=== PATIENT | male | born 1930 | race Caucasian/White ===

== ENCOUNTER → 2018-08-04 | Outpatient (CLI) | payer MEDICARE, OTHER | LOC: M.MRI 07:07 | DX: S83.242A Other tear of medial meniscus, current injury, left knee, initial encounter (principal); M17.12 Unilateral primary osteoarthritis, left knee; X58.XXXA Exposure to other specified factors, initial encounter; Y93.89 Activity, other specified; Y92.89 Other specified places as the place of occurrence of the external cause; Y99.8 Other external cause status ==

== ENCOUNTER 2018-09-08 06:51 | Inpatient (IN) | payer MEDICARE, OTHER ==
[2018-08-20 09:06] LABS: URINE BILIRUBIN NEGATIVE (Negative); URINE BLOOD 3+ (Negative); URINE CLARITY CLEAR; URINE COLOR YELLOW; URINE GLUCOSE-RANDOM NEGATIVE (Negative); URINE KETONES NEGATIVE (Negative); URINE LEUKOCYTES-REFLEX NEGATIVE (Negative); URINE NITRITE-REFLEX NEGATIVE (Negative); URINE PROTEIN NEGATIVE (Negative); URINE UROBILINOGEN 0.2 E.U./dl (0.2-1.0)
[2018-08-20 09:11] LABS: HEMATOCRIT 48.2 % (42.0-52.0); HEMOGLOBIN 16.2 gm/dL (14.0-18.0); MCH 31.7 pg (26.0-34.0); MCHC 33.6 g/dL (28.0-37.0); MCV 94.3 fL (80.0-100.0); MPV 8.9 fl. (7.2-11.1); RBC 5.11 mil/uL (4.50-6.00); RDW-CV 14.2 % (10.5-14.5); WBC 12.9 thou/uL (4.0-11.0)
[2018-08-20 09:19] LABS: PROTIME 10.7 Seconds (9.20-11.50)
[2018-08-20 09:24] LABS: ALBUMIN 3.8 g/dL (3.4-5.0); CALCIUM 9.3 mg/dL (8.5-10.1); CREATININE 1.4 mg/dL (0.6-1.3); TOTAL BILIRUBIN 0.9 mg/dL (<0.1-1.0); TOTAL PROTEIN 7.8 g/dL (6.4-8.2)
[2018-08-20 09:40] LABS: SQUAMOUS 0-3 Few /LPF (0-3)
[2018-08-20 09:41] LABS: CASTS None Seen /LPF (None Seen); CRYSTALS None Seen /LPF (None Seen); MUCUS 0-3 Light strn/LPF (None Seen); URINE WBC-REFLEX 0-5 Rare /HPF (0-5)
[2018-08-20 09:43] LABS: BACTERIA-REFLEX 1-9 Few /HPF (None Seen)
--- NOTE | 2018-08-20 14:04 | EKG ---
[place] [address] ELECTROCARDIOGRAM REPORT Name: MADISON GRIGSBY Room: PRE IN [facility]#: [id number] Admission: Attend Phys: Elizabeth Sawant Discharge: Date of : 32 Report #: [id number] THIS REPORT FOR: //name// [facility] Test Date: 2018-08-20 Test Time: 09:30:08 Pat Name: MADISON GRIGSBY Department: Room: Gender: M Band Booker: : 1930 Requested By: Dominic Patrick Order Number: [id number] Vish MD: Shayne Carrasco Measurements Intervals [place] Rate: 48 P: 76 AK: 219 QRS: -61 QRSD: 128 T: 100 QT: 422 QTc: 377 Interpretive Statements Sinus bradycardia Left bundle branch block No previous ECG available for comparison Electronically Signed On 08-20-2018 14:04:31 CDT by Shayne Carrasco [email or web address] <ELECTRONICALLY SIGNED> By: Shayne Carrasco MD, [facility] 08/20/18 1404 0930 0930 Shayne Carrasco MD, FACC /EPI
[~2018-09-08] VITALS: Ht 180.3 cm; Wt 96.6 kg
[~2018-09-08 06:51] MED LIST: ASMANEX220 MC2 INH; ASPIRIN EC81 M1 PO; COLACE100 MG PO; FLOMAX0.4 MG PO; MIRALAX17 GM PO; OXYCODONE HCL 55 MG PO; STRIVERDI RESPIM4 GM INH; VENTOLIN HFA 1818 GM INH; XARELTO10 MG PO
[2018-09-08 07:49] VITALS: BP 181/60
[2018-09-08 11:50] VITALS: BP 137/53
--- NOTE | 2018-09-08 16:52 | NUR ---
PATIENT ARRIVED TO UNIT AT 1145. ALERT AND ORIENTED X4. ASSESSMENT COMPLETED AND CHARTED. VSS ON 3 LITERS 02. NO COMPLAINTS OF PAIN, NAUSEA OR SOA. FLUIDS STARTED AND ANTIBIOTIC INFUSED ORDERED. STARTED PAIN MEDS BEFORE CPM USE AND THERAPY. TITRATED OXYGEN DOWN TO 1 LITER, PATIENT VERY EAGER TO GET OXYGEN OFF TODAY, VITALS STABLE ON 1 LITER AT THIS TIME. FALL PRECAUTIONS IN PLACE. CALL LIGHT IN REACH AND USES APPROPRIATELY. HOURLY ROUNDS COMPLETED. WILL CONTINUE TO MONITOR.
[2018-09-08 17:04] VITALS: BP 144/50
[2018-09-08 19:30] VITALS: BP 105/53
[2018-09-09] VITALS: BP 131/53
[2018-09-09 04:00] VITALS: BP 153/49
--- NOTE | 2018-09-09 05:06 | NUR ---
PT SLEPT MOST OF SHIFT. ASSESSMENT DOCUMENTED. MEDS GIVEN PER E-APR. PT REFUSED PAIN MEDS FOR NOW, STATING THAT HE HAS NO PAIN, PT EDUCATED. CPM WORN THIS SHIFT. PT UP TO BSC. IV PATENT, FLUIDS INFUSING. WILL CONTINUE WITH PLAN OF CARE.
[2018-09-09 05:19] LABS: HEMATOCRIT 39.2 % (42.0-52.0)
[2018-09-09 07:30] VITALS: BP 167/56
--- NOTE | 2018-09-09 12:00 | NUR ---
MET WITH PT.AND . SHE WILL BE WITH HIM 16/09 AT HOME UPON DISCHARGE. HE HAS A FWW IN ROOM FROM HOME. HE SAID HE WAS NORMALLY INDEPENDENT AT HOME, STILL DRIVES, ETC. ONLY THING HE CAN'T DO,PER HIS ,IS PUT ON HIS SOCKS. SHE DOES THAT FOR HIM. HE WOULD LIKE TO START OUT WITH HOME HEALTH WHEN HE IS DISCHARGED. LIVES IN [place], [place]. TOLD THEM I WOULD LOOK BUT I FEEL [facility]IS[facility]ING [facility] ONLY [facility] THAT GOES OUT THAT FAR. THEY WERE AGREEABLE. PT.IS ALSO ON CHRONIC XARELTO. HE SAID HE HAS HIS MONTHLY PRESCRIPTION OF 10MG/DAILY AT HOME. HE IS UNSURE IF HE WILL DISCHARGE TODAY OR TOMORROW. CM WILL FOLLOW. FAXED REFERRAL TO [phone] AND WILL NOTIFY OF DISCHARGE [phone].
--- NOTE | 2018-09-09 15:25 | OP ---
[facility] [address] [place] [address] OPERATIVE REPORT Name: MADISON GRIGSBY Room: [address] IN .R.#: [id number] Admission: 09/08/18 Attend Phys: Elizabeth Sawant Discharge: Date of : 32 Report #: [id number] THIS REPORT FOR: //name// CC: Hansel Pressley DATE OF SERVICE: 09/08/2018 PREOPERATIVE DIAGNOSIS: Left knee osteoarthritis. POSTOPERATIVE DIAGNOSIS: Left knee osteoarthritis. PROCEDURE: Left total knee arthroplasty. ANESTHESIA: General endotracheal. ESTIMATED BLOOD LOSS: 50 mL. ANTIBIOTICS: Ancef preoperatively. DRAINS: Medium Hemovac. COMPLICATIONS: None. Condition of the patient is stable to recovery room. IMPLANTS: Listed in operative record and progress note. BRIEF HISTORY: The patient was seen in the preoperative area. Preoperative H and P was performed. Site was marked, questions were answered. Risks and benefits were discussed with the patient in detail about surgery. The patient wished to proceed assuming all risks. DESCRIPTION OF PROCEDURE: The patient was taken to the operative suite and placed supine on the operative table, given appropriate anesthesia. A well-padded tourniquet was applied to the upper thigh, which was inflated to 300 mmHg after gravity exsanguination. The operative knee was sterilely prepped and draped. Surgery began by a midline incision, which was carried down to the subcutaneous tissues. A medial parapatellar arthrotomy was performed and carried down to the bone. The patella was then everted and excess soft tissue was removed from around the femur. Femoral cutting block was then applied, checked with a drop sandra for rotational alignment, pinned in appropriate position and appropriate cuts were made. A 4-in-1 cutting block was then applied, checked for rotational alignment, pinned in appropriate position and appropriate cuts were made. The tibia was exposed. Excess meniscus was removed. Retractor was placed on collateral ligaments. The tibial cutting block was then applied, pinned in appropriate position, checked with drop [place] [address] OPERATIVE REPORT Name: MADISON GRIGSBY Room: [address] IN ..#: [id number] Admission: 09/08/18 Attend Phys: Elizabeth Sawant Discharge: Date of : 32 Report #: [id number] and slope and appropriate cut was made. The tibial bone was removed. The tibial base plate was then applied and checked for rotational alignment with the drop sandra and pinned in appropriate position. The femur was then applied and box cut was reamed. This was then trialed with appropriate spacer, which showed excellent fit and fill and excellent stability of the knee throughout all range of motion. The patella was then reamed in appropriate fashion and sized to appropriate size. Three peg holes were drilled and it was then trialed and showed excellent flexion, extension, excellent tracking of its groove. These trials were removed. The tibia was punched in appropriate fashion. Bone ends were cleansed with Pulsavac irrigation and the cement was mixed and applied to final implants. These were then malleted into position and held the knee in extension and compressed to allow cement to cure. After it cured, excess cement was removed using a [place] and osteotome. Wound was then copiously irrigated and the final spacer was then malleted into position. The tourniquet was deflated. Hemostasis was obtained with electrocautery. Pain cocktail was injected. PRP gel was sprayed throughout the internal aspects of the knee. Medium Hemovac drain was applied. Capsule was closed with #2 FiberWire and #1 Vicryl in [id number] fashion. The skin was closed with 2-0 Vicryl and running 3-0 Monocryl. Dermabond and sterile dressing applied. Aguila wrap and PolarCare applied. The patient was transported to recovery room in stable condition. Counts were correct throughout the procedure. <ELECTRONICALLY SIGNED> By: Dominic Patrick II, DO 09/09/18 1525 0734 0743Dominic Patrick II, DO /vikash
[2018-09-09 15:42] VITALS: BP 167/56
[2018-09-09 16:00] VITALS: BP 156/64
--- NOTE | 2018-09-09 18:51 | NUR ---
ASSUMED CARE OF PATIENT AT APPROX 0730. ALERT AND ORIENTED X4. ASSESSMENT COMPLETED AND CHARTED. VSS ON ROOM AIR. COMPLAINTS OF PAIN MANAGED WITH ORAL PAIN MEDICATION. NO COMPLAINTS OF NAUSEA OR SOA. PATIENT WORKED WITH THERAPIES TODAY AND PROGRESSED TOWARD GOALS. CPM USED ORDERED. PATIENT UP WITH GAIT BELT AND WALKER. FALL PRECAUTIONS IN PLACE. CALL LIGHT WITHIN REACH. HOURLY ROUNDS COMPLETED. WILL CONTINUE TO MONITOR.
[2018-09-09 19:59] VITALS: BP 132/48
[2018-09-10 04:29] LABS: HEMATOCRIT 33.6 % (42.0-52.0); HEMOGLOBIN 11.4 gm/dL (14.0-18.0)
--- NOTE | 2018-09-10 05:36 | NUR ---
PT ALERT AND ORIENTED. VITALS STABLE RA. DRESSING ON LT KNEE CLEAN AND DRY. PAIN CONTROLLED WITH PO PAIN MEDS. TEDS, POLAR CARE, SCD IN PLACE. TOLERATED CPM. HOURLY ROUNDING COMPLETED. WILL CONTINUE TO MONITOR.
[2018-09-10 07:35] VITALS: BP 129/39
[2018-09-10 09:31] VITALS: BP 167/56
--- NOTE | 2018-09-10 09:44 | NUR ---
SEAL DELIVERY VEHICLE OFFICER INFORMED THAT THE PATIENT IS READY TO D/C TODAY WITH [facility]. D/C HORTICULTURAL FARM MANAGER SPOKE TO DOMINGO WITH INTAKE AT [facility] TO INFORM OF THE PATIENT'S D/C AND FAXED D/C ORDERS. [facility] ACCEPTS THE PATIENT AND WILL CONTACT THE PATIENT TO ARRANGE A TIME TO VISIT. CM WILL REMAIN AVAILABLE TO ASSIST AND FOLLOW NEEDED. [facility] PHONE: [phone] FAX: [phone]
[2018-09-10 11:07] VITALS: BP 167/56
[2018-09-10] MEDS ORDERED: PERCOCET PO (11:24)
--- NOTE | 2018-09-10 12:30 | NUR ---
DISCHARGE TO HOME W/ HOME HEALTH. PATIENT PLEASANT AND COOPERATIVE W/ CARES AND ASSESS THIS SHIFT. CPM REMOVED AT APPROX 0800. PATIENT STATES HE WAS ABLE TO GET THE RANGE UP TO 95 YESTERDAY, BUT NOT FOR LONG. DISCHARGE INSTRUCTIONS REVIEWED W/ PATIENT, PRESENT. PATIENT STATES VERBALLY OF UNDERSTANDING, ASKING Qs, Qs ANSWERED TO PATIENT/ SATISFACTION. VERBALIZING UNDERSTANDING. IV CATH DISCONTINUED, CATH TIP INTACT, COTTON BALL/TAPE APPLIE TO SITE. COPY OF DISCHARGE INSTRUCTIONS AND ORIGINAL SCRIPTS GIVEN TO PATIENT IN FOLDER. CPM, POLAR PACK AND PATIENT BELONGINGS GATHERED PER NURSING. PATIENT ESCORTED TO AWAITING VEHICLE PER WC W/ , X2 CNAs PRESENT. ALERT AND ORIENTED. DENIES OTHER NURSING NEEDS AT THIS TIME. ~TJRN
--- NOTE | 2018-09-11 07:57 | NUR ---
PT. DISCHARGED FROM [facility] PRIOR TO OT EVALUATION
== END 2018-09-10 12:30 | disposition home health service (06) | DRG 470 ==
LOC: M.PRE 06:51 → M.ORTHSURG 07:14 → M.TBA 07:14 → M.PRE 10:02 → M.ORTHSURG 11:31 → M.PRE 13:27 → M.ORTHSURG 09-10 12:30
PROVIDERS: Orthopaedic Surgery; ADMIT Internal Medicine
PROC: 0SRD0J9 Replacement of Left Knee Joint with Synthetic Substitute, Cemented, Open Approach (ICD-10-PCS; principal; 2018-09-08)
DX: M17.12 Unilateral primary osteoarthritis, left knee (principal); J98.11 Atelectasis; D62 Acute posthemorrhagic anemia; J44.9 Chronic obstructive pulmonary disease, unspecified; R09.02 Hypoxemia; Z88.8 Allergy status to other drugs, medicaments and biological substances; Z88.6 Allergy status to analgesic agent; Z91.041 Radiographic dye allergy status; Z98.42 Cataract extraction status, left eye; Z98.41 Cataract extraction status, right eye; Z86.718 Personal history of other venous thrombosis and embolism; Z86.711 Personal history of pulmonary embolism; Z79.899 Other long term (current) drug therapy

== ENCOUNTER → 2019-03-16 | Day surgery (SDC) | payer MEDICARE, OTHER ==
[~2019-03-16] MED LIST changes: +FISH OIL 1,4001 EACH PO; +GLUCOSAMINE &1 EAC1 PO; +HYDROCODON-ACE1 EAC7 PO; +MULTIVITAMINS1 EAC7 PO; +PERCOCET PO
[2019-03-16 13:22] LABS: HEMATOCRIT 47.1 % (42.0-52.0); HEMOGLOBIN 15.8 gm/dL (14.0-18.0); MCH 30.8 pg (26.0-34.0); MCHC 33.5 g/dL (28.0-37.0); MCV 91.9 fL (80.0-100.0); MPV 8.6 fl. (7.2-11.1); RBC 5.12 mil/uL (4.50-6.00); RDW-CV 15.6 % (10.5-14.5); WBC 11.9 thou/uL (4.0-11.0)
[2019-03-16 13:31] LABS: CALCIUM 9.3 mg/dL (8.5-10.1); CREATININE 1.2 mg/dL (0.6-1.3); POTASSIUM 4.4 mmol/L (3.5-5.1)
--- NOTE | 2019-03-16 14:28 | EKG ---
[place] [address] ELECTROCARDIOGRAM REPORT Name: SARAHCathleenMADISON Room: [facility]#: [id number] Admission: 03/16/19 Attend Phys: Dominic Patrick II Discharge: Date of : 32 Report #: [id number] THIS REPORT FOR: //name// [facility] Test Date: 2019-03-16 Test Time: 13:18:02 Pat Name: MADISON GRIGSBY Department: Room: Gender: M Angiographer: : 1930 Requested By: Dominic Patrick Order Number: [id number] Vish MD: Mich Rojas Measurements Intervals [place] Rate: 62 P: 63 TX: 212 QRS: -69 QRSD: 141 T: 49 QT: 446 QTc: 453 Interpretive Statements Sinus rhythm RBBB and LAFB Compared to ECG 08/20/2018 09:30:08 Right bundle-branch block now present Sinus bradycardia no longer present Electronically Signed On 03-16-2019 14:27:46 ELECTRONICS TECHNOLOGY DEPARTMENT CHAIR by Mich Rojas [email or web address] <ELECTRONICALLY SIGNED> By: Mich Rojas MD, [facility] 03/16/19 1427 1318 17 Mich Rojas MD, FAC /EPI
--- NOTE | 2019-03-17 22:05 | OP ---
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 PROCEDURES PERFORMED: 1. Left knee arthroscopic surgery with lateral release. 2. Arthroscopic lysis of adhesions. 3. Manipulation under anesthesia, left knee. SURGEON: Dominic Patrick II, DO [employer] DEAN: DEUCE Giles ANESTHESIA: Per operative record. ESTIMATED BLOOD LOSS: Minimal. ANTIBIOTICS: Per operative record. DRAINS: None. COMPLICATIONS: None. CONDITION OF THE PATIENT: Stable to recovery room. BRIEF HISTORY: The patient was seen in the preoperative area. The patient had had previous total knee replacement approximately 7 months ago, did have a lack of therapy due to his choice, states that he did have stiffness in his knee. The patient at this time has between 20 degrees and 105 degrees of range of motion of the knee, which was taken utilizing pictures prior to surgery. The patient was warned the risks including fracture as well as infection, possibility of further surgery and the patient assumed all risks and wished to proceed. DESCRIPTION OF PROCEDURE: The patient was taken to the operative suite and placed supine on the operating table, [place] [address] OPERATIVE REPORT Name: MADISON GRIGSBY Room: [facility]#: [id number] Admission: 03/16/19 Attend Phys: Dominic Patrick II Discharge: Date of : 32 Report #: [id number] patient's affected lower extremity was placed in a well-padded knee arthroscopic centeno and sterilely prepped and draped. Surgery began by medial and lateral portal incision. The arthroscope was advanced in the joint. There was shown to be lateral tilt to patella with lateral translation of the femur utilizing electrocautery. A lateral release was performed over the lateral patellar retinaculum to allow for decreased patellar tilt and improved alignment. There was also shown to be significant adhesions throughout the knee, which debrided utilizing shaver as well as arthroscopic wand throughout the medial and lateral as well as patellofemoral regions to remove excess scarring in this region as well as adhesions. Total joint appeared to be intact upon evaluation arthroscopically. At this time, the knee was then drained of arthroscopic fluid, closed with 3-0 nylon in simple fashion. Dermabond and sterile dressing was applied. The patient was then taken out of the knee arthroscopic centeno, placed over a rolled up towel and manipulation under anesthesia was performed down to approximately 0 degrees of extension and 145 degrees of flexion. These were also obtained with photograph analysis to evaluate completeness. A final range of motion test was performed and the patient appeared to have no evidence of laxity of the ligaments and complete alignment of the knee from 0-145 degrees. Counts were correct throughout the procedure. The patient transported to recovery room in stable condition. <ELECTRONICALLY SIGNED> By: Dominic Patrick II, 03/17/19 2205 0735 [id number] Patrick II, DO /nt
== END | disposition home or self-care (01) ==
LOC: EDSTATUS 06:18 → M.SUR 12:53
PROVIDERS: Orthopaedic Surgery
DX: M22.8X2 Other disorders of patella, left knee (principal); M23.8X2 Other internal derangements of left knee; M17.12 Unilateral primary osteoarthritis, left knee; Z98.890 Other specified postprocedural states; Z79.899 Other long term (current) drug therapy; Z91.041 Radiographic dye allergy status; Z88.8 Allergy status to other drugs, medicaments and biological substances; Z79.82 Long term (current) use of aspirin